=== PATIENT | male | born 1995 | race Caucasian/White ===

== ENCOUNTER 2021-07-09 10:37 | Emergency (ER) | payer OTHER, SELFPAY ==
[2021-07-09 11:36] VITALS: BP 153/92; PULSE 82; RESP 14; TEMP 36.6; O2SAT 99
[2021-07-09 11:59] LABS: Basophils Percent Auto 0.5 % (0.2-1.2); Eosinophils Percent Auto 0.4 % (0-4.4); Hematocrit 46.7 % (42.0-52.0); Hemoglobin 15.8 g/dL (14.0-18.0); Immature Granulocyte Absolute 0.02 K/mm3 (0.00-0.031); Immature Granulocyte Percent A 0.2 % (0-0.5); Lymphocytes Absolute Auto 2.11 K/mm3 (0.9-3.2); Mean Corpuscular HGB Conc 33.8 g/dl (32-36); Mean Corpuscular Hemoglobin 30.1 pg (26-34); Mean Platelet Volume 10.4 fl (7.4-10.4); Monocytes Absolute Auto 0.7 K/mm3 (0.1-0.6); Neutrophils Absolute Auto 5.3 K/mm3 (1.3-6.7); Neutrophils Percent Auto 64.9 % (45.5-73.1); Platelet Count Result 217 k/mm3 (150-375); Red Blood Count 5.25 M/mm3 (4.6-6.20); White Blood Count 8.1 K/mm3 (4.5-10.0)
[2021-07-09 12:05] LABS: Add Urine Microscopic? NO; Appearance Urine Clear (Clear); Bilirubin Urine Negative (Negative); Blood Urine Negative (Negative); Color Urine Yellow (Yellow); Glucose Urine UA Negative (Negative); Ketones Urine Negative (Negative); Leukocyte Esterase Ur Negative LEU/UL (Negative); Nitrate Urine Negative (Negative); Protein Urine Negative (Negative); Urobilinogen Urine Negative mg/dL (<2.0)
[2021-07-09 12:12] LABS: Alanine Aminotransferase 24 U/L (4-50); Albumin Level 5.1 g/dL (3.5-5.1); Alkaline Phosphatase 92 U/L (38-126); Anion Gap 6 mmol/L (8-16); Aspartate Amino Transferase 33 U/L (17-59); Blood Urea Nitrogen 14 mg/dL (9-20); Calcium 9.6 mg/dL (8.4-10.2); Carbon Dioxide 31 mmol/L (22-30); Chloride 102 mmol/L (98-107); Estimated CRCL calculation 136 ml/min; Estimated Glomerular Filt Rate > 60; Glucose 107 mg/dL (65-110); Lipase 36 U/L (23-300); Potassium 4.7 mmol/L (3.4-5.0); Sodium 139 mmol/L (137-145)
[2021-07-09 13:35] VITALS: BP 148/88; PULSE 73; RESP 18; TEMP 36.9; O2SAT 100
--- NOTE | 2021-07-09 14:26 | ED.ABDPAIN ---
HPI - Abdominal Pain General Chief Complaint: Abdominal Pain Stated Complaint: abd pain Time Seen by Provider: 07/09/21 14:03 History of Present Illness HPI narrative: Patient is a 25-year-old healthy male here for evaluation of lower abdominal pain for the past month and a half, worse over the past 5 days. Patient states the pain is intermittent, coming in waves, lasting seconds at a time, described as hunger pain . Patient reports decreased appetite and some nausea due to the pain. His last meal was yesterday. Denies known triggers for his pain including eating or positions. No vomiting, diarrhea, constipation, blood in his stools, fevers. No personal or family history of irritable bowel disease. Related Data Allergies Allergy/AdvReac Type Severity Reaction Status Date / Time No Known Allergies Allergy Verified 07/09/21 13:52 Review of Systems Review of Systems: Gen.: Denies fevers or chills Eyes: Denies eye pain or visual change ENT: Denies congestion Respiratory: Denies shortness of breath or cough CV: Denies chest pain or palpitations GI: Reports lower abdominal pain. Any denies abdominal pain nausea, emesis or diarrhea : denies burning, urgency, frequency or hematuria Musculoskeletal: Denies back pain or muscle pain Neuro: Denies numbness, tingling, weakness or focal weakness Skin: Denies rash Except as documented, all other systems reviewed and negative All systems reviewed & are unremarkable except as noted in HPI and below Exam Narrative: APPEARANCE: Well appearing, no pain in distress, well-nourished. Head: normocephalic and atraumatic. EYES: PERRLA/EOMI, conjunctivae clear NOSE: No nasal drainage EARS: External ear normal in appearance THROAT: Oropharynx is clear. Mucous membranes are moist. NECK: Supple. No adenopathy, no masses. RESPIRATORY: Airway patent, respirations nonlabored. Clear to auscultation bilaterally, no rales, rhonchi, wheezing. CARDIOVASCULAR: Regular rate and rhythm without murmurs, rubs, or gallops. ABDOMINAL: Normoactive bowel sounds. No tenderness to palpation over entire abdomen. No organomegaly. Normoactive bowel sounds. Soft, nondistended. No rebound tenderness or guarding. MUSCULOSKELETAL: Extremities are warm and well-perfused. Moves all extremities well. No edema. NEURO: Normal speech. No focal neurologic deficits. SKIN: Skin is warm and dry. No rashes. PSYCHIATRIC: Normal affect/mood. Course Vital Signs Vital signs: Vital Signs Temperature 97.9 F 07/09/21 11:36 Pulse Rate 82 07/09/21 11:36 Respiratory Rate 14 07/09/21 11:36 Blood Pressure 153/92 H 07/09/21 11:36 Pulse Oximetry 99 07/09/21 11:36 Temperature 98.4 F 07/09/21 13:35 Pulse Rate 73 07/09/21 13:35 Respiratory Rate 18 07/09/21 13:35 Blood Pressure 148/88 H 07/09/21 13:35 Pulse Oximetry 100 07/09/21 13:35 MDM - Abdominal Pain MDM Narrative Medical decision making narrative: 25-year-old male here with lower abdominal pain over the past month and a half. Vital signs within normal limits, no abdominal tenderness on exam, labs/UA unremarkable for acute process. Presentation consistent with IBS, do not feel imaging needed at this time, low suspicion for appendicitis, pancreatitis, cholecystitis, irritable bowel disease given lack of tenderness on exam and normal labs. Provided with GI cocktail for pain, discussed return precautions and patient voiced understanding. Patient does not have primary care provider, provided with number for him to set up care. Lab Data Result diagrams: 07/09/21 11:46 07/09/21 11:46 Labs: Lab Results 07/09/21 07/09/21 07/09/21 Range/Units 11:46 11:46 11:46 WBC 8.1 (4.5-10.0) K/mm3 RBC 5.25 (4.6-6.20) M/mm3 Hgb 15.8 (14.0-18.0) g/dL Hct 46.7 (42.0-52.0) % MCV 89.0 (80-100) fl MCH 30.1 (26-34) pg MCHC 33.8 (32-36) g/dl RDW 13.0 (11.5-14.5) % Plt Count 217 (150-375) k/
[2021-07-09] MEDS: BELLADONNA ALK/PHENOB ELIX 10 ML, MAG HYDROX/ALUMINUM HYD/SIMETH 30 ML, LIDOCAINE HCL 2... PO (14:58)
== END 2021-07-09 15:08 | disposition home or self-care (01) ==
PROVIDERS: Emergency Provider Emergency Medicine
DX: R10.30 Lower abdominal pain, unspecified (principal)
CPT/HCPCS: 36415; 80053; 81003; 83690; 85025; 99283; A9270